=== PATIENT | male | born 1950 | race African-American/Black ===

== ENCOUNTER 2019-10-18 11:48 | Emergency (ER) | payer MEDICARE, OTHER ==
[~2019-10-18] VITALS: Ht 177.8 cm; Wt 84.1 kg
[2019-10-18] MEDS ORDERED: meclizine 12.5mg tablet PO ONE (16:30)
[2019-10-18 17:17] LABS: ALANINE AMINOTRANSFERASE 31 U/L (12-78); ALBUMIN 3.5 G/DL (3.4-5.0); ALBUMIN/GLOBULIN RATIO 0.8 (1.1-1.5); ALKALINE PHOSPHATASE 77 IU/L (46-116); ANION GAP 8 (8-16); ASPARTATE AMINO TRANSFERASE 18 U/L (10-37); BILIRUBIN,TOTAL 0.3 MG/DL (0.1-1.0); BLOOD UREA NITROGEN 17 MG/DL (7-18); BUN/CREATININE RATIO 18.3 (5.4-32.0); CALCIUM 9.4 MG/DL (8.5-10.1); CHLORIDE 106 MMOL/L (99-107); CREATININE 0.93 MG/DL (0.60-1.10); GLUCOSE 276 MG/DL (70-104); POTASSIUM 4.3 MMOL/L (3.5-5.1); SODIUM 141 MMOL/L (135-145); TOTAL CARBON DIOXIDE 27.4 MMOL/L (24-32); TOTAL PROTEIN 7.8 G/DL (6.4-8.2); eGFR 81 ML/MIN
[2019-10-18 17:30] LABS: BASOPHILS % (AUTO) 0.5 % (0-1); EOSINOPHILS % (AUTO) 0.1 % (0-6); LYMPHOCYTES # (AUTO) 0.8 X10'3 (1.1-4.8); LYMPHOCYTES % (AUTO) 11.3 % (21-51); MEAN PLATELET VOLUME 11.7 FL (7.4-10.4); MONOCYTES # (AUTO) 0.4 X10'3 (0-0.9); MONOCYTES % (AUTO) 4.9 % (2-12); NEUTROPHILS % (AUTO) 83.2 % (42-75); PLATELET COUNT 174 X10'3 (140-440); WHITE BLOOD COUNT 7.3 X10'3 (4.5-11.0)
[2019-10-18 17:49] LABS: HEMATOCRIT 41.7 % (42.0-52.0); HEMOGLOBIN 13.1 g/dl (14.0-17.9); MEAN CORPUSCULAR HGB CONC 31.5 g/dL (33.0-36.5); MEAN CORPUSCULAR VOLUME 79.2 FL (78-98); RED BLOOD COUNT 5.26 X10'6 (4.70-6.10); RED CELL DISTRIBUTION WIDTH 14.5 % (11.5-14.5)
[2019-10-18 18:17] LABS: ELLIPTOCYTES 1+; HYPOCHROMASIA 1+; MICROCYTOSIS 1+; PLATELET ESTIMATE NORMAL; TEAR DROP CELLS FEW
[2019-10-18 18:30] VITALS: BP 160/80
[2019-10-18 18:52] LABS: CLARITY,URINE CLEAR (Clear); COLOR,URINE YELLOW (Yellow); GLUCOSE, URINE >=1000 mg/dl (Neg); KETONES,URINE 15 mg/dl (Neg); LEUKOCYTE ESTERASE ,URINE NEGATIVE (Neg); NITRITES, URINE NEGATIVE (Neg); OCCULT BLOOD,URINE TRACE-INTACT (Neg); PROTEIN,URINE NEGATIVE (Neg); UROBILINOGEN,URINE 0.2 E.U/dL (0.2-1.0)
[2019-10-18 19:03] LABS: UA COLLECTION TYPE CLN CATCH MIDSTREAM
[2019-10-18] MEDS ORDERED: MECL-184 PO (19:09)
[2019-10-18 19:12] LABS: BACTERIA,URINE NONE SEEN /HPF (Neg); MUCUS STRANDS FEW /LPF (Neg); RBC,URINE 0-2 /HPF (0-2); SQUAMOUS EPITHELIAL CELL,UR FEW /LPF (FEW); WBC,URINE 0-4 /HPF (0-4)
== END 2019-10-18 19:21 | disposition home or self-care (01) ==
LOC: ER 11:49
DX: H81.10 Benign paroxysmal vertigo, unspecified ear (principal); R42 Dizziness and giddiness; Z79.899 Other long term (current) drug therapy
CPT/HCPCS: 36415; 80053; 81001; 85025; 93005; 99284; J8597